=== PATIENT | female | born 1950 | race Caucasian/White ===

== ENCOUNTER → 2017-02-26 | Outpatient (CLI) | payer MEDICARE | END | disposition home or self-care (01) | LOC: CFH 09:00 | PROVIDERS: ATTEND Registered Nurse | DX: I77.811 Abdominal aortic ectasia (principal) | CPT/HCPCS: 76700 ==

== ENCOUNTER → 2018-01-28 | Outpatient (CLI) | payer MEDICARE ==
[~2018-01-28] MED LIST: ASCO-96 PO; CHOL500045 PO; CINN500C2 PO; CURCUMIN PO; CYAN100028 PO; DIGE1TAB PO; IBUP200T64 PO; MAGNESIUM PO; MULT-224 PO; OMEGA 3 PO; PREVAGEN PO; RED600CA2 PO; SAFF176. PO; UBID100C19 PO; WOMEN S PO; [UNRECOGNIZED DRUG - OTHER] PO
== END ==
LOC: STAR 11:23
PROVIDERS: ATTEND Orthopaedic Surgery
DX: Z01.818 Encounter for other preprocedural examination (principal); M76.11 Psoas tendinitis, right hip
CPT/HCPCS: 93005

== ENCOUNTER → 2020-10-30 | Outpatient (CLI) | payer MEDICARE ==
[~2020-10-30] MED LIST changes: +ASPI81TA45 PO; -MULT-224 PO; +MULT-642 PO; +UBID100C10 PO; -UBID100C19 PO; +VITA40TA PO; +[UNRECOGNIZED DRUG - OTHER] PO
== END | disposition home or self-care (01) ==
LOC: STAR 14:34
PROVIDERS: ATTEND Internal Medicine Geriatric Medicine
DX: Z01.818 Encounter for other preprocedural examination (principal); R10.11 Right upper quadrant pain; K82.8 Other specified diseases of gallbladder; Z20.822 Contact with and (suspected) exposure to COVID-19
CPT/HCPCS: 87635; 93005

== ENCOUNTER 2020-11-05 10:39 | Day surgery (SDC) | payer MEDICARE ==
[~2020-11-05] VITALS: Ht 170.2 cm; Wt 83.0 kg
[2020-11-05] MEDS ORDERED: CHLORHEXIDINE 15 ML UDC ONE (11:06)
[2020-11-05 11:10] VITALS: BP 90/64
[2020-11-05] MEDS ORDERED: LACTATED RINGERS 1,000 ML IV SCH (11:30)
[2020-11-05] MEDS ORDERED: CHLORHEXIDINE 15 ML UDC MM ONE (11:30)
[2020-11-05] MEDS ORDERED: DEXAMETHASONE 4 MG/ML, 1ML ONE (12:30)
[2020-11-05] MEDS ORDERED: PROPOFOL 10 MG/ML, 20ML ONE (12:30)
[2020-11-05] MEDS ORDERED: ONDANSETRON 2MG/ML, 2ML ONE (12:30)
[2020-11-05] MEDS ORDERED: SUCCINYLCHOLINE 20 MG/ML, 10ML ONE (12:30)
[2020-11-05] MEDS ORDERED: FENTANYL PF 100 MCG/2ML ONE (12:33)
== END 2020-11-05 14:25 | disposition home or self-care (01) ==
LOC: OUT 10:39
PROVIDERS: ATTEND Internal Medicine Geriatric Medicine
DX: R93.2 Abnormal findings on diagnostic imaging of liver and biliary tract (principal); K20.90 Esophagitis, unspecified without bleeding; K83.9 Disease of biliary tract, unspecified; Z79.82 Long term (current) use of aspirin; Z86.718 Personal history of other venous thrombosis and embolism
CPT/HCPCS: 43239; 43259; 88305; J0330; J1100; J2405; J2704; J3010; J7120